=== PATIENT | male | born 1940 | race Caucasian/White ===

== ENCOUNTER → 2016-08-21 | Outpatient (CLI) | payer MEDICARE, OTHER ==
[2016-08-21 09:12] LABS: BLOOD UREA NITROGEN 22 mg/dL (7-18)
[2016-08-21 09:21] LABS: ASPARTATE AMINO TRANSFERASE 32 U/L (15-37)
== END | disposition home or self-care (01) ==
LOC: CVU 08:42
PROVIDERS: ATTEND Internal Medicine Cardiovascular Disease
DX: I25.10 Atherosclerotic heart disease of native coronary artery without angina pectoris (principal); I51.7 Cardiomegaly; I35.0 Nonrheumatic aortic (valve) stenosis; I48.91 Unspecified atrial fibrillation; I10 Essential (primary) hypertension
CPT/HCPCS: 36415; 80053; 80061; 84436; 84443; 84481; 85025; 93306

== ENCOUNTER → 2017-02-03 | Outpatient (CLI) | payer MEDICARE, OTHER ==
[2017-02-03 09:22] LABS: HEMATOCRIT 39.1 % (39.2-51.8); HEMOGLOBIN 13.4 g/dL (13.7-18.0); WHITE BLOOD COUNT 9.1 x10^3/uL (3.4-10)
[2017-02-03 09:51] LABS: ASPARTATE AMINO TRANSFERASE 25 U/L (15-37); BLOOD UREA NITROGEN 10 mg/dL (7-18)
== END | disposition home or self-care (01) ==
LOC: LAB 09:03
PROVIDERS: ATTEND Internal Medicine Cardiovascular Disease
DX: I10 Essential (primary) hypertension (principal); I25.10 Atherosclerotic heart disease of native coronary artery without angina pectoris; I48.0 Paroxysmal atrial fibrillation; I48.2 Chronic atrial fibrillation; E78.00 Pure hypercholesterolemia, unspecified
CPT/HCPCS: 36415; 80053; 80061; 84443; 85025

== ENCOUNTER 2017-03-19 00:38 | Inpatient (IN) | payer MEDICARE, OTHER ==
[~2017-03-19] VITALS: Ht 170.2 cm; Wt 61.7 kg
[2017-03-19] MEDS ORDERED: CEFTRIAXONE PMX 2GM/50ML 50 ML ONE (01:09)
[2017-03-19] MEDS ORDERED: POTA10CA PO (01:27)
[2017-03-19] MEDS ORDERED: PRAV80TA2 PO (01:27)
[2017-03-19] MEDS ORDERED: ASCO250T3 PO (01:27)
[2017-03-19] MEDS ORDERED: WARF7.5T PO (01:27)
[2017-03-19] MEDS ORDERED: DILT180C9 PO (01:27)
[2017-03-19] MEDS ORDERED: FURO40TA6 PO (01:27)
[2017-03-19] MEDS ORDERED: OMEP20TA62 PO (01:27)
[2017-03-19] MEDS ORDERED: CEFTRIAXONE PMX 2GM/50ML 50 ML IV SCH ×2 (01:30→03:30)
[2017-03-19] MEDS ORDERED: CEFTRIAXONE PMX 2GM/50ML 50 ML IV ONE (02:00)
[2017-03-19] MEDS ORDERED: LIDOCAINE 1%, 10ML ONE (02:26)
[2017-03-19] MEDS ORDERED: LIDOCAINE 1%, 20ML SQ ONE (02:30)
[2017-03-19 02:43] LABS: ANION GAP 6 mmol/L (5-15); CHLORIDE 105 mmol/L (98-107); CREATININE 0.77 mg/dL (0.7-1.3)
[2017-03-19 02:46] LABS: CREATINE KINASE, TOTAL 320 U/L (39-308)
[2017-03-19] MEDS ORDERED: ONDANSETRON 2MG/ML, 2ML IVPush PRN (03:30)
[2017-03-19] MEDS ORDERED: ENALAPRILAT 1.25 MG/ML, 2ML IVPush PRN (03:30)
[2017-03-19] MEDS ORDERED: DOCUSATE 100 MG CAPSULE PO PRN (03:30)
[2017-03-19] MEDS ORDERED: POLYETHYLENE GLYCOL 17 GM PACKET PO PRN (03:30)
[2017-03-19] MEDS ORDERED: VANCOMYCIN PER PHARMACY MC PRN (03:30)
[2017-03-19] MEDS ORDERED: TEMAZEPAM 15 MG CAPSULE PO PRN (03:30)
[2017-03-19] MEDS ORDERED: ACETAMINOPHEN 325 MG TABLET PO PRN (03:30)
[2017-03-19] MEDS ORDERED: LABETALOL 5MG/ML, 20ML IVPush PRN (03:30)
[2017-03-19] MEDS ORDERED: ONDANSETRON ODT 4 MG PO PRN (03:30)
[2017-03-19] MEDS ORDERED: morphine SULFATE 10 MG/ML, 1ML IVPush PRN (03:30)
[2017-03-19 03:41] LABS: INTERNATIONAL NORMALIZED RATIO 3.36 (0.93-1.1); PROTHROMBIN TIME 34.1 Seconds (9.6-11.5)
[2017-03-19 06:41] VITALS: BP 171/85
[2017-03-19] MEDS ORDERED: PHARMACOKINETIC MONITORING MC PRN (07:30)
[2017-03-19] MEDS ORDERED: PHARMACOKINETIC CONSULTATION MC ONE (07:30)
[2017-03-19] MEDS ORDERED: COLCHICINE 0.6 MG TABLET PO SCH ×2 (08:00→09:00)
[2017-03-19 08:20] LABS: MEAN CORPUSCULAR HGB CONC 33.6 g/dL (33.2-36.2); MEAN CORPUSCULAR VOLUME 98.3 fL (81-97); MEAN PLATELET VOLUME 8.2 fL (7.4-10.4); PLATELET COUNT 364 x10^3/uL (130-400)
[2017-03-19 08:31] LABS: ALANINE AMINOTRANSFERASE 48 U/L (12-78); ALBUMIN 2.2 g/dL (3.4-5.0); ANION GAP 8 mmol/L (5-15); CALCIUM 8.7 mg/dL (8.5-10.1); CHLORIDE 104 mmol/L (98-107); CREATININE 0.72 mg/dL (0.7-1.3)
[2017-03-19 08:33] LABS: ALKALINE PHOSPHATASE 72 U/L (45-117); BILIRUBIN,TOTAL 0.5 mg/dL (0.2-1.0); TOTAL PROTEIN 6.3 g/dL (6.4-8.2)
[2017-03-19 08:35] LABS: MD YES
[2017-03-19 08:36] LABS: EOS#(MANUAL) 0.14 x10^3/uL (0.0-0.4); EOS% (MANUAL) 1 % (1-7)
[2017-03-19 08:37] LABS: LYMPH#(MANUAL) 1.96 x10^3/uL (1-3.4); LYMPHS% (MANUAL) 14 % (22-44); MONOS#(MANUAL) 1.68 x10^3/uL (0.3-2.7); MONOS% (MANUAL) 12 % (2-9); REACTIVE LYMPHS # (MANUAL) 0.28 x10^3/uL (0-0); REACTIVE LYMPHS % (MANUAL) 2 % (0-0); SEG#(MANUAL) 9.94 x10^3/uL (1.8-6.8); SEGS% (MANUAL) 71 % (42-75)
[2017-03-19 08:38] LABS: <PLATELET ESTIMATE> ADEQUATE; <PLT MORPHOLOGY> NORMAL PLT MORPH; <RBC MORPHOLOGY> NORMAL
[2017-03-19] MEDS: POTASSIUM CHLORIDE 10 MEQ TABLET.ER PO SCH (08:54)
[2017-03-19] MEDS: PANTOPROZOLE 40MG TABLET PO SCH (08:54)
[2017-03-19] MEDS: FUROSEMIDE 20 MG TABLET PO SCH (08:54)
[2017-03-19] MEDS: VANCOMYCIN 1,400 MG in SODIUM CHLORIDE 0.9% 250 ML IV SCH (09:04)
[2017-03-19] MEDS: HYDROcodone/APAP 5/325 TABLET PO PRN ×3 (09:44→21:39)
[2017-03-19] MEDS: DILTIAZEM CD 180 MG CAP.ER.24H PO SCH (09:44)
[2017-03-19 14:00] VITALS: BP 133/76
[2017-03-19] MEDS ORDERED: WARFARIN 5 MG TABLET PO-COUM SCH (18:00)
[2017-03-19] MEDS ORDERED: WARFARIN 7.5 MG TABLET PO-COUM SCH (18:00)
[2017-03-19] MEDS: PRAVASTATIN 40 MG TABLET PO SCH (20:49)
[2017-03-19 21:07] VITALS: BP 124/54
[2017-03-20 02:00] VITALS: BP 134/78
[2017-03-20] MEDS: CEFTRIAXONE 2,000 MG in DEXTROSE 5% 50 ML IV SCH (03:35)
[2017-03-20 05:47] LABS: INTERNATIONAL NORMALIZED RATIO 3.27 (0.93-1.1); PROTHROMBIN TIME 33.2 Seconds (9.6-11.5)
[2017-03-20 05:48] LABS: HCT (SEDRATE) 34.7 % (39.2-51.8)
[2017-03-20 05:49] LABS: BASOPHILS # (AUTO) 0.07 x10^3/uL (0-0.1); BASOPHILS % (AUTO) 1 % (0-1); EOSINOPHILS # (AUTO) 0.15 x10^3/uL (0-0.4); EOSINOPHILS % (AUTO) 1 % (1-7); LYMPHOCYTES # (AUTO) 1.92 x10^3/uL (1-3.4); LYMPHOCYTES % (AUTO) 16 % (22-44); MD NO; MEAN CORPUSCULAR HEMOGLOBIN 33.1 pg (27.5-34.5); MEAN CORPUSCULAR HGB CONC 33.7 g/dL (33.2-36.2); MEAN CORPUSCULAR VOLUME 98.2 fL (81-97); MEAN PLATELET VOLUME 8.1 fL (7.4-10.4); MONOCYTES # (AUTO) 1.17 x10^3/uL (0.2-0.8); MONOCYTES % (AUTO) 10 % (2-9); NEUTROPHILS # (AUTO) 8.77 x10^3/uL (1.8-6.8); NEUTROPHILS % (AUTO) 73 % (42-75); PLATELET COUNT 376 x10^3/uL (130-400); RED BLOOD COUNT 3.55 x10^6/uL (4.38-5.82); RED CELL DISTRIBUTION WIDTH 12.9 % (9.4-14.8)
[2017-03-20 05:55] LABS: CHLORIDE 103 mmol/L (98-107)
[2017-03-20 06:10] LABS: ALANINE AMINOTRANSFERASE 125 U/L (12-78); ALKALINE PHOSPHATASE 96 U/L (45-117); ANION GAP 8 mmol/L (5-15); BILIRUBIN,TOTAL 0.4 mg/dL (0.2-1.0); CALCIUM 8.7 mg/dL (8.5-10.1); CREATININE 0.85 mg/dL (0.7-1.3)
[2017-03-20 06:22] LABS: C-REACTIVE PROTEIN, QUANT > 19.00 mg/dL (0.02-0.49)
[2017-03-20] MEDS ORDERED: POTASSIUM CHLORIDE 20 MEQ TAB.ER.PRT PO ONE (07:00)
[2017-03-20] MEDS ORDERED: COLCHICINE 0.6 MG TABLET PO ONE (08:00)
[2017-03-20 08:30] VITALS: BP 132/68
[2017-03-20] MEDS: VANCOMYCIN 1,400 MG in SODIUM CHLORIDE 0.9% 250 ML IV SCH (10:52)
[2017-03-20] MEDS: COLCHICINE 0.6 MG TABLET PO SCH (10:53)
[2017-03-20] MEDS: PANTOPROZOLE 40MG TABLET PO SCH (10:53)
[2017-03-20] MEDS: POTASSIUM CHLORIDE 10 MEQ TABLET.ER PO SCH (10:53)
[2017-03-20] MEDS: DILTIAZEM CD 180 MG CAP.ER.24H PO SCH (10:53)
[2017-03-20] MEDS: FUROSEMIDE 20 MG TABLET PO SCH (10:53)
[2017-03-20] MEDS: HYDROcodone/APAP 5/325 TABLET PO PRN (10:54)
[2017-03-20 15:29] VITALS: BP 160/72
[2017-03-20] MEDS ORDERED: WARFARIN 5 MG TABLET PO-COUM SCH (18:00)
[2017-03-20] MEDS: methylPREDNISolone SOD SUCC 125 MG/2 ML IV SCH (18:34)
[2017-03-20 20:00] VITALS: BP 131/70
[2017-03-20] MEDS: PRAVASTATIN 40 MG TABLET PO SCH (22:09)
[2017-03-21] MEDS: methylPREDNISolone SOD SUCC 125 MG/2 ML IV SCH ×2 (03:35→11:23)
[2017-03-21] MEDS: CEFTRIAXONE 2,000 MG in DEXTROSE 5% 50 ML IV SCH (03:35)
[2017-03-21 03:46] VITALS: BP 154/67
[2017-03-21 05:06] LABS: BASOPHILS # (AUTO) 0.03 x10^3/uL (0-0.1); BASOPHILS % (AUTO) 0 % (0-1); EOSINOPHILS % (AUTO) 0 % (1-7); LYMPHOCYTES # (AUTO) 1.21 x10^3/uL (1-3.4); LYMPHOCYTES % (AUTO) 10 % (22-44); MD NO; MEAN CORPUSCULAR HEMOGLOBIN 32.9 pg (27.5-34.5); MEAN CORPUSCULAR VOLUME 99.6 fL (81-97); MEAN PLATELET VOLUME 7.8 fL (7.4-10.4); MONOCYTES # (AUTO) 0.24 x10^3/uL (0.2-0.8); MONOCYTES % (AUTO) 2 % (2-9); NEUTROPHILS # (AUTO) 10.34 x10^3/uL (1.8-6.8); NEUTROPHILS % (AUTO) 87 % (42-75); PLATELET COUNT 452 x10^3/uL (130-400); RED CELL DISTRIBUTION WIDTH 13.3 % (9.4-14.8)
[2017-03-21 05:07] LABS: INTERNATIONAL NORMALIZED RATIO 3.15 (0.93-1.1)
[2017-03-21 05:12] LABS: ALBUMIN 2.1 g/dL (3.4-5.0); ANION GAP 6 mmol/L (5-15); CALCIUM 9.2 mg/dL (8.5-10.1); CHLORIDE 103 mmol/L (98-107); CREATININE 0.89 mg/dL (0.7-1.3)
[2017-03-21 09:19] VITALS: BP 134/71
[2017-03-21] MEDS: POTASSIUM CHLORIDE 10 MEQ TABLET.ER PO SCH (09:36)
[2017-03-21] MEDS: DILTIAZEM CD 180 MG CAP.ER.24H PO SCH (09:36)
[2017-03-21] MEDS: COLCHICINE 0.6 MG TABLET PO SCH (09:36)
[2017-03-21] MEDS: FUROSEMIDE 20 MG TABLET PO SCH (09:36)
[2017-03-21] MEDS: PANTOPROZOLE 40MG TABLET PO SCH (09:37)
[2017-03-21] MEDS: HYDROcodone/APAP 5/325 TABLET PO PRN ×2 (11:23→19:06)
[2017-03-21 13:51] VITALS: BP 116/65
[2017-03-21] MEDS ORDERED: WARFARIN 5 MG TABLET PO-COUM ONE (18:00)
[2017-03-21 19:52] VITALS: BP 139/67
[2017-03-21] MEDS: PRAVASTATIN 40 MG TABLET PO SCH (22:14)
[2017-03-22 01:22] VITALS: BP 144/80
[2017-03-22 05:07] LABS: INTERNATIONAL NORMALIZED RATIO 4.34 (0.93-1.1); PROTHROMBIN TIME 43.9 Seconds (9.6-11.5)
[2017-03-22 05:12] LABS: ALBUMIN 2.1 g/dL (3.4-5.0); ANION GAP 7 mmol/L (5-15); CALCIUM 9.3 mg/dL (8.5-10.1); CHLORIDE 103 mmol/L (98-107)
[2017-03-22 05:16] LABS: MEAN CORPUSCULAR HEMOGLOBIN 33.4 pg (27.5-34.5); MEAN CORPUSCULAR HGB CONC 33.9 g/dL (33.2-36.2); MEAN CORPUSCULAR VOLUME 98.4 fL (81-97); MEAN PLATELET VOLUME 7.7 fL (7.4-10.4); PLATELET COUNT 483 x10^3/uL (130-400); RED BLOOD COUNT 3.79 x10^6/uL (4.38-5.82)
[2017-03-22 05:17] LABS: ALANINE AMINOTRANSFERASE 148 U/L (12-78); ALKALINE PHOSPHATASE 107 U/L (45-117); BILIRUBIN,TOTAL 0.4 mg/dL (0.2-1.0); CREATININE 0.87 mg/dL (0.7-1.3); TOTAL PROTEIN 6.5 g/dL (6.4-8.2)
[2017-03-22 05:39] LABS: BASOPHILS # (AUTO) 0.02 x10^3/uL (0-0.1); BASOPHILS % (AUTO) 0 % (0-1); EOSINOPHILS % (AUTO) 0 % (1-7); LYMPHOCYTES # (AUTO) 1.53 x10^3/uL (1-3.4); LYMPHOCYTES % (AUTO) 8 % (22-44); MD SCAN; MONOCYTES % (AUTO) 2 % (2-9); NEUTROPHILS # (AUTO) 16.82 x10^3/uL (1.8-6.8); NEUTROPHILS % (AUTO) 90 % (42-75)
[2017-03-22 07:48] VITALS: BP 116/65
[2017-03-22] MEDS ORDERED: HOLD COUMADIN MC PRN (08:00)
[2017-03-22] MEDS: PANTOPROZOLE 40MG TABLET PO SCH (08:01)
[2017-03-22] MEDS: COLCHICINE 0.6 MG TABLET PO SCH (08:01)
[2017-03-22] MEDS: DILTIAZEM CD 180 MG CAP.ER.24H PO SCH (08:01)
[2017-03-22] MEDS: HYDROcodone/APAP 5/325 TABLET PO PRN ×2 (08:01→13:27)
[2017-03-22] MEDS: FUROSEMIDE 20 MG TABLET PO SCH (08:01)
[2017-03-22] MEDS: POTASSIUM CHLORIDE 10 MEQ TABLET.ER PO SCH (08:02)
[2017-03-22] MEDS ORDERED: COLC0.6T37 PO ×2 (08:15→08:39)
[2017-03-22] MEDS ORDERED: ALLO300T PO (08:15)
[2017-03-22] MEDS ORDERED: PRED20TA PO (08:27)
== END 2017-03-22 14:31 | disposition home health service (06) | DRG 548 ==
LOC: ED 01:45 → EDIP 02:03 → 4WST 06:41
PROVIDERS: ADMIT Internal Medicine; ATTEND Internal Medicine
PROC: 0S9C3ZZ Drainage of Right Knee Joint, Percutaneous Approach (ICD-10-PCS; principal; 2017-03-19)
DX: M00.9 Pyogenic arthritis, unspecified (principal); E43 Unspecified severe protein-calorie malnutrition; D68.69 Other thrombophilia; I48.2 Chronic atrial fibrillation; I50.9 Heart failure, unspecified; I11.0 Hypertensive heart disease with heart failure; I35.8 Other nonrheumatic aortic valve disorders; M25.461 Effusion, right knee; W18.30XA Fall on same level, unspecified, initial encounter; E78.5 Hyperlipidemia, unspecified; K21.9 Gastro-esophageal reflux disease without esophagitis; T45.515A Adverse effect of anticoagulants, initial encounter; Y92.009 Unspecified place in unspecified non-institutional (private) residence as the place of occurrence of the external cause; Z79.899 Other long term (current) drug therapy; Z66 Do not resuscitate; M17.11 Unilateral primary osteoarthritis, right knee; Y93.89 Activity, other specified; Y92.049 Unspecified place in boarding-house as the place of occurrence of the external cause; Y99.8 Other external cause status; M10.9 Gout, unspecified
CPT/HCPCS: 20610; 36415; 70450; 80048; 80053; 82040; 82550; 82945; 83735; 84100; 84157; 84550; 84560; 85025; 85610; 85651; 85810; 86140; 87070; 87205; 89050; 89060; 99285; J0696; J3370; J2930; J7050; J7512

== ENCOUNTER 2020-06-17 09:39 | Outpatient (CLI) | payer MEDICARE, OTHER ==
[~2020-06-17 09:39] MED LIST: ALLO300T PO; ASCO250T13 PO; COLC0.6T37 PO; DILT-86 PO; FURO40TA6 PO; OMEP20TA62 PO; POTA10CA PO; PRAV80TA2 PO; PRED20TA PO; WARF7.5T PO
== END 2020-06-17 23:59 | disposition home or self-care (01) ==
LOC: CFH 09:39 → EDSTATUS 10:15 → CFH 23:59
PROVIDERS: ATTEND Internal Medicine Cardiovascular Disease
DX: I08.3 Combined rheumatic disorders of mitral, aortic and tricuspid valves (principal); I25.10 Atherosclerotic heart disease of native coronary artery without angina pectoris; R01.1 Cardiac murmur, unspecified
CPT/HCPCS: 93306